=== PATIENT | male | born 1950 | race Caucasian/White ===

== ENCOUNTER 2016-12-07 12:57 | Emergency (ER) | payer MEDICARE, OTHER ==
[2016-12-07 13:57] LABS: BASOPHIL 0.1 % (0-2); EOSINOPHIL 0.1 % (0-7); HCT 35.5 % (42.0-52.0); HGB 11.8 g/dl (13.2-18.0); LYMPHOCYTE 6.4 % (15-48); MCH 29.6 pg (25.0-31.0); MCHC 33.2 g/dL (32.0-36.0); MCV 89.2 fL (78.0-100.0); MONOCYTE 1.3 % (0-12); MPV 9.5 fL (6.0-9.5); PLT 349 K/uL (150-400); RBC 3.98 M/uL (4.70-6.00); RDW 13.2 % (11.5-14.0); WBC 11.3 K/uL (4.0-10.5)
[2016-12-07 13:58] LABS: CKMB 3.46 ng/mL (0.97-4.94); LACTIC ACID 3.1 mmol/L (0.5-2.2); PRO-BNP 890 pg/mL (0-125); TROPONIN T < 0.010 ng/mL
[2016-12-07 13:59] LABS: ALBUMIN 3.6 g/dL (3.4-4.8); BILIRUBIN - TOTAL 0.2 mg/dL (0.1-1.0); NEUTROPHIL 92.1 % (41-80); POTASSIUM 4.8 mmol/L (3.5-5.1); TOTAL PROTEIN 6.6 g/dL (6.4-8.3)
[2016-12-07 14:01] LABS: INR 1.47 (0.9-1.2); PROTHROMBIN TIME 17.3 SECONDS (11.7-14.0)
[2016-12-07 14:28] LABS: BILIRUBIN NEGATIVE (NEGATIVE); BLOOD NEGATIVE Ery/uL (NEGATIVE); CLARITY CLEAR (CLEAR); COLOR YELLOW (YELLOW); GLUCOSE (U) NORMAL (NORMAL); KETONE (U) NEGATIVE (NEGATIVE); LEUKOCYTES 1+ Leu/uL (NEGATIVE); NITRITE NEGATIVE (NEGATIVE); PROTEIN NEGATIVE (NEGATIVE); SPECIFIC GRAVITY 1.015 (1.001-1.030); UROBILINOGEN 0.2 mg/dL (0.2-1.0); pH 6.5 (5.0-9.0)
[2016-12-07 14:37] LABS: BACTERIA TRACE; URINARY RBC RARE
== END 2016-12-07 20:09 | disposition other institution (70) ==
LOC: FER 12:57
PROVIDERS: Emergency Medicine
DX: A41.9 Sepsis, unspecified organism (principal); L08.9 Local infection of the skin and subcutaneous tissue, unspecified; I50.9 Heart failure, unspecified; I48.91 Unspecified atrial fibrillation; I25.2 Old myocardial infarction; Z95.1 Presence of aortocoronary bypass graft; Z95.5 Presence of coronary angioplasty implant and graft; Z88.8 Allergy status to other drugs, medicaments and biological substances; Z79.82 Long term (current) use of aspirin; Z79.899 Other long term (current) drug therapy
CPT/HCPCS: 36415; 71010; 80053; 81001; 82550; 82553; 83605; 83880; 84484; 85025; 85610; 85651; 86140; 86403; 87040; 87070; 87077; 87088; 87186; 87205; 93005; J2543